=== PATIENT | male | born 1970 | race Caucasian/White ===

== ENCOUNTER 2017-09-30 21:55 | Emergency (ER) | payer BC ==
[2017-09-30] MEDS ORDERED: predniSONE 20 MG TAB ONE (22:08)
[2017-09-30] MEDS ORDERED: diphenhydrAMINE 25 MG CAP ONE (22:08)
== END 2017-09-30 22:17 | disposition home or self-care (01) ==
LOC: SCSER 21:55
DX: T78.40XA Allergy, unspecified, initial encounter (principal); F41.9 Anxiety disorder, unspecified; F32.9 Major depressive disorder, single episode, unspecified; Z79.899 Other long term (current) drug therapy
CPT/HCPCS: 99283; J7506

== ENCOUNTER 2025-06-23 14:18 | Outpatient (CLI) | payer BC | END 2025-06-23 14:19 | disposition home or self-care (01) | LOC: SCSRAD 14:18 | PROVIDERS: ATTEND Family Medicine | DX: J45.20 Mild intermittent asthma, uncomplicated (principal); J06.9 Acute upper respiratory infection, unspecified | CPT/HCPCS: 71046 ==